=== PATIENT | male | born 1950 | race Caucasian/White ===

== ENCOUNTER 2023-10-27 07:28 | Outpatient (CLI) | payer OTHER | END 2023-10-27 07:43 | disposition home or self-care (01) | LOC: MRI 07:28 | DX: K80.10 Calculus of gallbladder with chronic cholecystitis without obstruction (principal) | CPT/HCPCS: 74181 ==

== ENCOUNTER → 2023-11-08 | Day surgery (SDC) | payer OTHER ==
[~2023-11-08] MED LIST: CRESTOR10 MG PO; GLUMETZA1000 MG PO; JARDIANCE10 MG PO; MIRALAX17 GM PO; SYNTHROID75 MCG PO; TRAMADOL HCL100 M2 PO; TYLENOL325 MG PO
[2023-11-08 11:31] LABS: HEMATOCRIT 46.9 % (39.0-48.0); HEMOGLOBIN 15.7 g/dL (13-16.00); MEAN CELL VOLUME 91.4 fL (80.0-100.00); MEAN CORPUSCULAR HEMOGLOBIN 30.7 pg (27.00-32.0); MEAN CORPUSCULAR HGB CONC 33.6 g/dl (32.0-36.0); PH,URINE 6.5 (5.0-8.0); PLATELET COUNT 214 K/uL (150-450); RED BLOOD COUNT 5.13 M/uL (4.00-6.00); RED CELL DISTRIBUTION WIDTH 13.7 % (11.5-14.5); URINE APPEARANCE Clear; URINE BACTERIA 11.2 uL (0.0-1933); URINE BILIRRUBIN Negative (NEGATIVE); URINE BLOOD Negative; URINE COLOR Yellow; URINE LEUKOCYTE Negative; URINE NITRATE Negative; URINE PROTEIN Negative (NEGATIVE); URINE UROBILINOGEN 0.2 E.U./dl
[2023-11-08 11:35] LABS: URINE EPITHELIAL CELLS 0.4 uL (0.0-38.8); URINE GLUCOSE >=1000 MG/DL (NEGATIVE); URINE RBC 1.5 uL (0.0-20.8)
[2023-11-08 11:50] LABS: INR 1.17; PARTIAL THROMBOPLASTIN TIME 31.3 SECONDS (22.0-34.0); PROTHROMBIN TIME 12.1 SECONDS (9.0-11.5)
[2023-11-08 11:55] LABS: ALBUMIN 4.3 gm/dL (3.4-5.0); BILIRUBIN TOTAL 0.56 mg/dL (0.3-1.2); BILIRUBIN,CONJUGATED 0.16 mg/dL (0.0-0.2); BILIRUBIN,UNCONJUGATED 0.4 mg/dL (0.0-0.6); CALCIUM 9.4 mg/dL (8.5-10.1); CREATININE SERUM 0.73 mg/dL (0.70-1.30); GFR 104.74; GLOBULINA 3.3 G/DL (2.4-3.5); POTASSIUM 4.49 mEq/L (3.5-5.1); TOTAL PROTEIN 7.6 gm/dL (6.4-8.2)
== END | disposition home or self-care (01) ==
LOC: CIR.AMB 10:53
PROVIDERS: ATTEND Surgery
DX: K80.10 Calculus of gallbladder with chronic cholecystitis without obstruction (principal); K42.9 Umbilical hernia without obstruction or gangrene